=== PATIENT | female | born 1990 | race American Indian/Alaskan Native ===

== ENCOUNTER 2017-12-25 05:34 | Inpatient (IN) | payer BC, MEDICAID ==
[2017-12-25 05:35] VITALS: BMI 31.8
--- NOTE | 2017-12-25 05:39 | ED PDOC ---
Psych Transfer Clearance - Clearance Statement Clearance Statement: Reviewed vital signs, lab results and transfer papers. Patient clinically stable for psychiatric admission.
[2017-12-25 05:59] VITALS: O2SAT 98
[2017-12-25] MEDS ORDERED: DiphenhydrAMINE 50 mg/ml Inj IM PRN (06:14)
--- NOTE | 2017-12-25 06:45 | PCM.BM ---
<Caitlin Dyson - Last Filed: 12/25/17 06:43> Treatment Plan Problems - Problems identified on initial assessmt Medication Nonadherence Date Initiated: 12/25/17 Time Initiated: 06:43 Assessment reference: NA Status: Active Treatment assets and liabiliti Patient Assests: cooperative, ADL independent, physically healthy, good support system, negotiates basic needs Patient Liabilities: other (chronic mental problem) - Milieu Protocol Maintain good personal hygiene: daily Encourage regular showers, daily Remind patient to perform daily oral care, every shift Assist patient to perform ADL's Maintain personal safety: every shift Educate patient to report safety concerns to staff, every shift Monitor environment for contraband/sharps Medication safety: Monitor for expected outcome, potential side effects: every shift, Assess barriers to learning: every shift, Assess readiness for medication education: every shift <Solo Estes - Last Filed: 12/26/17 18:51> Family Contact Family involvement: Family/SO is involved Family contact: Patient declines to allow family contact at present Family contact name: Pt denied. - Goals for Treatment Patient goals for treatment: Pt was discharged focused, but understood that she would benefit from continued hospitaization as she was recently started on medicatons and should be monitored for side effects. Discharge/Continuing Care - Education Needs Education Needs: Patient Medication, Patient Diagnosis/Disease Process, Patient Coping Skills, Patient Anger Management skills, Patient Aftercare Safety Plan - Discharge Discharge Criteria: Tolerates medication w/o severe side effects, Free of Suicidal thoughts, Free of paranoid thoughts, Free of agitation, Normal sleep pattern, Reduction of target symptoms Discharge to:: Home, With Family <Angelika Mendez - Last Filed: 12/28/17 15:49> Discharge/Continuing Care - Treatment Team Participation Patient/Family/SO Statement: 12/28/17 15:49 Patient attended tx team this morning and was better able to engage in discussion regarding progress on 3NP, tx goals and aftercare. Pt. reports significant improvement in sxs of paranoia since admission. Pt. future oriented and motivated for tx. Pt. reported having called [facility] from [facility] to confirm outpatient mental health appointment (12/30 1030am). Pt. visible on 3 and observed socializing appropriately with select peers. Medication management discussed at length. Discussed with Family/SO: No Was Patient/Family/SO present at Treatment Team Meeting: Yes <Ilana Maya - Last Filed: 12/29/17 09:37> - Diagnosis (1) Paranoid delusion Status: Acute Interventions: pharmacotherapy, psychotherapy 12/29/17 09:36
--- NOTE | 2017-12-25 07:29 | CP.PCM.HP ---
History of Present Illness - History of Present Illness History of Present Illness: pt admitted for depression/SI, states has been buliding for a while. has outpt psych appt next week no f/c, n/v/d. no hallucinations h/o asthma-controlled, hernia repair, ovarian cyst removal bw noted Present on Admission - Present on Admission Any Indicators Present on Admission: No Review of Systems - Psychiatric Psychiatric: As Per HPI, Depression, Suicidal Ideation Past Patient History - Infectious Disease Hx of Infectious Diseases: None - Tetanus Immunizations Tetanus Immunization: Up to Date - Past Social History Smoking Status: Never Smoked - CARDIAC Hx Cardiac Disorders: No - PULMONARY Hx Asthma: Yes Hx Bronchitis: Yes - NEUROLOGICAL Hx Neurological Disorder: No - HEENT Hx HEENT Problems: No - RENAL Hx Chronic Kidney Disease: No - ENDOCRINE/METABOLIC Hx Endocrine Disorders: No - HEMATOLOGICAL/ONCOLOGICAL Hx Blood Disorders: No - INTEGUMENTARY Hx Dermatological Problems: No - MUSCULOSKELETAL/RHEUMATOLOGICAL Hx Musculoskeletal Disorders: No Hx Falls: No - GASTROINTESTINAL Hx Gastrointestinal Disorders: No - GENITOURINARY/GYNECOLOGICAL Hx Genitourinary Disorders: No - PSYCHIATRIC Hx Psychophysiologic Disorder: Yes Hx Anxiety: Yes Hx Bipolar Disorder: Yes Hx Depression: Yes Hx Emotional Abuse: No Hx Panic Symptoms: Yes Hx Physical Abuse: No Hx Substance Use: No - SURGICAL HISTORY Other/Comment: OVARIAN CYSTS Meds Allergies/Adverse Reactions: Allergies Allergy/AdvReac Type Severity Reaction Status Date / Time esomeprazole magnesium Allergy RASH Verified 12/25/17 05:45 [From Nexium] Physical Exam - Constitutional Appears: Well, Non-toxic, No Acute Distress - Head Exam Head Exam: ATRAUMATIC, NORMAL INSPECTION, NORMOCEPHALIC - Eye Exam Eye Exam: EOMI, Normal appearance, PERRL Pupil Exam: NORMAL ACCOMODATION, PERRL - ENT Exam ENT Exam: Mucous Membranes Moist, Normal Exam - Neck Exam Neck exam: Positive for: Normal Inspection - Respiratory Exam Respiratory Exam: Clear to Auscultation Bilateral, NORMAL BREATHING PATTERN - Cardiovascular Exam Cardiovascular Exam: REGULAR RHYTHM, RRR, +S1, +S2 - GI/Abdominal Exam GI & Abdominal Exam: Normal Bowel Sounds, Soft. absent: Tenderness - Extremities Exam Extremities exam: Positive for: full ROM, normal capillary refill, normal inspection, pedal pulses present - Back Exam Back exam: FULL ROM, NORMAL INSPECTION - Neurological Exam Neurological exam: Alert, CN II-XII Intact, Normal Gait, Oriented x3, Reflexes Normal - Psychiatric Exam Psychiatric exam: Normal Affect, Normal Mood - Skin Skin Exam: Dry, Intact, Normal Color, Warm Results - Vital Signs Recent Vital Signs: Last Vital Signs Temp 98.1 F 12/25/17 06:25 Pulse 72 12/25/17 06:25 Resp 18 12/25/17 06:25 BP 126/71 12/25/17 06:25 Pulse Ox 98 12/25/17 05:45 - Labs Result Diagrams: 12/25/17 08:14 Assessment & Plan (1) Asthma, mild intermittent, well-controlled Assessment and Plan: albuterol prn Status: Acute (2) DVT prophylaxis Assessment and Plan: ambulation Status: Acute (3) Major depression Assessment and Plan: w/ SI psych meds, interventions, therapies Status: Acute Decision To Admit - Pt Status Changed To: Hospital Disposition Of: Inpatient - Admit Certification Admit to Inpatient:: After my assessment, the patient will require hospitalization for at least two midnights. This is because of the severity of symptoms shown, intensity of services needed, and/or the medical risk in this patient being treated as an outpatient. - . Bed Request Type: Adult Psychiatry Admitting Physician: Caro uMnguia
[2017-12-25 08:58] LABS: T4 8.16 ug/dl (5.5-11.0)
[2017-12-25 09:16] LABS: BLOOD UREA NITROGEN 6 mg/dl (7-17); GFR AFRICAN-AMERICAN > 60; GFR NON-AFRICAN AMERICAN > 60
[2017-12-25 09:17] LABS: CALCIUM 8.5 mg/dL (8.4-10.2)
[2017-12-25] MEDS ORDERED: Albuterol HFA 90 mcg/actuation (8 g) INH PRN (10:13)
--- NOTE | 2017-12-25 14:58 | PCM.PSYCH ---
Initial Psychiatric Evaluation - Initial Psychiatric Evaluation Type of Admission: Voluntary Legal Status: Capacity Chief Complaint (in patient's own words): I started having suicidal thoughts so I came to seek help Patient's Reaction to Hospitalization: pt requested help History of Present Illness and Precipitating Events: pt is 27ys old female, no prior history of psychiatric hospitalization or treatment, pt however reported having paranoid delusions since childhood, , related to tough childhood with alcoholic father and non affectionate mother, pt currently has been feeling increasingly overwhelmed having financial difficulties with four children, for the past month has been experiencing racing thoughts, feeling paranoid towards other people with persecutory delusions of other people talking about her, mood swing with periods of depression alternating with periods of irritability and anger, pt was placed on olanzapine and prozac by PMD with poor response resulting in poor compliance , on day of evaluation pt started experiencing suicidal thoughts , came to ER seeking help pt on the unit continues to have passive suicidal ideation without active plan on the unit, delusions of persecution , presenting with thought blocking, appears internally preoccupied, pt denied command hallucinations, denied any substance use Current Medications: Active Medications Generic Name Dose Route Start Last Admin Trade Name Freq PRN Reason Stop Dose Admin Acetaminophen 650 mg 12/25/17 06:14 Tylenol 325mg Tab PO Q4 PRN pain level 4-7 Albuterol 2 puff 12/25/17 10:13 Ventolin Hfa 90 Mcg/Actuation (8 G) INH RQ4 PRN Shortness of Breath Aripiprazole 10 mg 12/26/17 09:00 Abilify PO DAILY ANETA Diphenhydramine HCl 50 mg 12/25/17 06:14 Benadryl IM Q6 PRN Extrapyramidal S/S Unable PO Diphenhydramine HCl 50 mg 12/25/17 06:14 Benadryl PO Q6 PRN Extrapyramidal Symptoms Haloperidol 5 mg 12/25/17 06:14 Haldol PO Q4 PRN Agitation Haloperidol Lactate 5 mg 12/25/17 06:14 Haldol IM Q4 PRN Agitation, Unable to Take PO Lorazepam 1 mg 12/25/17 06:14 Ativan IM Q8 PRN Anxiety/Agitation,Unable PO Lorazepam 1 mg 12/25/17 06:14 Ativan PO Q8H PRN Anxiety/Agitation Past Psychiatric History - Past Psychiatric History Explanation of prior treatment: no hx of previous psychiatric hospitalization History of ETOH/Drug Use: denied History of Family Illness: father, hx of polysubstance use Pertinent Medical Hx (Current Medical&Sleep Prob, Allergies): Allergies Allergy/AdvReac Type Severity Reaction Status Date / Time esomeprazole magnesium Allergy RASH Verified 12/25/17 05:45 [From Nexium] FLUoxetine [Prozac] 10 mg PO DAILY 11/14/15 Cephalexin [cephalexin] 500 mg PO TID #21 cap 03/29/16 Mental Status Examination - Personal Presentation Personal Presentation: Looks stated age - Affect Affect: Constricted, Depressed - Motor Activity Motor Activity: Psychomotor Retardation - Reliability in Providing Information Reliability in Providing Information: Fair - Speech Speech: Relevant - Mood Mood: Depressed, Anxious - Formal Thought Process Formal Thought Process: Delusions, Paranoia Additional comments: delusions of persecution - Hallucinations/Delusions Additional comments: denied command hallucinations, internally preoccupied - Cognitive Functions Orientation: Person, Place, Situation Attention/Concentration: Attentive - Risk Risk: Suicidal, Diminished functioning - Strength & Assets Inventory Strength & Assets Inventory: Life experience - Limitations Additional comments: partial compliance DSM 5 DX - DSM 5 DSM 5 Diagnosis: bipolar disorder mixed with psychotic features - Recommended/Plan of Treatment Treatment Recommendations and Plan of Treatment: start abilify 5mg, uptitrated to 10mg CBT group and supportive therapy
--- NOTE | 2017-12-26 12:54 | PCM.PYCHPN ---
Psychiatric Progress Note - Psychiatric Progress Note Patient seen today, length of contact: case discussed with team, chart reviewed Patient Chief Complaint: was at home was feeling over whelmed stressed feeling overwhelmed had thoughts of suicide recently had to change psychiatric provider due to change in insurance. reportedly was without medications several days prior to admission. pt reports feeling less sedated with current medications. staff report pt has been adherent with medications. Problems Identified/Issues Discussed: alteration in mood alteration in coping Medical Problems: per chart Diagnostic Results: per psychiatry per medicine per nursing per nursing home social worker per recreational therapy DSM 5 Symptoms Update: alteration in mood suicidal ideations Medication Change: No Medical Record Reviewed: Yes Consults ordered or reviewed: pt evaluated by hospitalist Mental Status Examination - Cognitive Function Orientation: Person, Place, Situation Memory: Intact Attention: WNL Concentration: WNL Association: WNL Fund of Knowledge: WNL Decription of patient's judgement and insights: impaired - Mood Mood: Depressed, Anxious - Affect Affect: Constricted, Depressed - Homicidal Ideation Homicidal Ideation: No
--- NOTE | 2017-12-27 22:07 | PCM.PYCHPN ---
Psychiatric Progress Note - Psychiatric Progress Note Patient seen today, length of contact: case discussed with team, chart reviewed Patient Chief Complaint: pt reports feeling calmer, less anxious less depressed reportedly adherent with current treatment denies side effects,denies desire to harmself or others Problems Identified/Issues Discussed: alteration in mood alteration in coping Medical Problems: per chart Diagnostic Results: per psychiatry per medicine per nursing per social worker delinquency prevention per recreational therapy DSM 5 Symptoms Update: alteration in mood Medication Change: No Medical Record Reviewed: Yes Consults ordered or reviewed: pt seen by hospitalist Mental Status Examination - Cognitive Function Orientation: Person, Place, Situation Memory: Intact Attention: WNL Concentration: WNL Association: [facility] Fund of Knowledge: [facility] Decription of patient's judgement and insights: impaired - Mood Mood: Depressed, Anxious - Affect Affect: Constricted, Depressed - Formal Thought Process Formal Thought Process: Delusions, Paranoia - Suicidal Ideation Suicidal Ideation: No - Homicidal Ideation Homicidal Ideation: No Goal/Treatment Plan - Goal/Treatment Plan Need for Continued Stay: Remain at risks for inpatient hospitalization, Discharge may exacerbated symptoms Progress Toward Problem(s) and Goals/Treatment Plan: inpt milieu vital signs and clinical observation per status and per protocol adjust meds per status discharge planning in progress Estimated Date of D/C: 12/29/17 - Smoking Cessation Smoking Cessation Initiated: No Reason for not providing: defers
--- NOTE | 2017-12-28 16:05 | PCM.PYCHPN ---
Psychiatric Progress Note - Psychiatric Progress Note Patient seen today, length of contact: case discussed with team, chart reviewed Patient Chief Complaint: I feel better with the medicine Problems Identified/Issues Discussed: pt evaluated with treatment team, reported better mood with the increase in abilify. less depressed, no current suicidal thoughts, pt also reported clearing off of the paranoid delusions, observed interacting with staff and other patients, attending groups, no side effects of medications Medical Problems: no hx of previous psychiatric hospitalization DSM 5 Symptoms Update: bipolar disorder Medication Change: No Medical Record Reviewed: Yes Mental Status Examination - Cognitive Function Orientation: Person, Place, Situation Memory: Intact Attention: WNL Concentration: WNL Association: WNL Fund of Knowledge: WNL - Mood Mood: Depressed, Anxious - Affect Affect: Constricted, Depressed - Formal Thought Process Formal Thought Process: Delusions, Paranoia - Suicidal Ideation Suicidal Ideation: No - Homicidal Ideation Homicidal Ideation: No Goal/Treatment Plan - Goal/Treatment Plan Need for Continued Stay: Remain at risks for inpatient hospitalization, Discharge may exacerbated symptoms Progress Toward Problem(s) and Goals/Treatment Plan: abilify 10mg daily CBT group and supportive therapy Estimated Date of D/C: 12/29/17
[2017-12-29 08:47] VITALS: BP 117/72; PULSE 84; RESP 18; TEMP 96.4
--- NOTE | 2017-12-29 14:04 | PCM.PYCHDC ---
Mental Status Examination - Mental Status Examination Orientation: Person, Place, Situation Memory: Intact Mood: Neutral Affect: Broad Speech: Appropriate Attention: WNL Concentration: WNL Fund of Knowledge: WNL Formal Thought Process: Circumstantial Description of patient's judgement and insight: fair insight and judgment Psychotic Thoughts and Behaviors: pt on discharge denied any current psychotic symptoms, non elicited Suicidal Ideation: No Current Homicidal Ideation?: No Discharge Summary - Discharge Note Reason for Hospitalization: pt is 27ys old female, no prior history of psychiatric hospitalization or treatment, pt however reported having paranoid delusions since childhood, , related to tough childhood with alcoholic father and non affectionate mother, pt currently has been feeling increasingly overwhelmed having financial difficulties with four children, for the past month has been experiencing racing thoughts, feeling paranoid towards other people with persecutory delusions of other people talking about her, mood swing with periods of depression alternating with periods of irritability and anger, pt was placed on olanzapine and prozac by PMD with poor response resulting in poor compliance , on day of evaluation pt started experiencing suicidal thoughts , came to ER seeking help pt on the unit continues to have passive suicidal ideation without active plan on the unit, delusions of persecution , presenting with thought blocking, appears internally preoccupied, pt denied command hallucinations, denied any substance use Consultations:: List each consultation separately and include: 1. Reason for request. 2. Findings. 3. Follow-up Summary of Hospital Course include:: 1. Description of specific treatment plan utilized for patients during their course of treatmen. 2. Summarize the time- course for resolution of acute symptoms and/or regressed behaviors. 3. Describe issues identified and worked on during hospitalization. 4. Describe medication utilized. 5. Describe medical problems identified and treated. 6. Reassessment of suicide risk Summary of Hospital Course: pt on admission reported racing thoughts, labile affect, depression , suicidal thoughts, and paranoid delusions, pt was started on abilify 5mg , it was uptitrated to 10mg , CBT group and supportive therapy provided pt was compliant with medications, attended groups, reported clearing off of the paranoid delusions, no reported side effects of medications on discharge mental status was stable pt denied any current suicidal or homicidal ideation , denied perceptual disturbances follow up arranged by health care social worker at [facility] - Diagnosis (1) Paranoid delusion Status: Acute - Final Diagnosis (DSM 5) Condition upon Discharge: STABLE DSM 5: bipolar II disorder depressed delusional disorder Disposition: HOME/ ROUTINE Prescriptions/Medication Reconciliation: ARIPiprazole [Abilify] 10 mg PO DAILY 30 Days #30 tab traZODone [Desyrel] 50 mg PO HS PRN 30 Days #30 tab PRN Reason: Insomnia - Antipsychotic Medications Pt discharged on 2 or more routine antipsychotic medications: No
== END 2017-12-29 11:33 | disposition home or self-care (01) | DRG 430 ==
LOC: H.ER 05:34 → H.PSYCH 05:50
PROVIDERS: ADMIT Psychiatry & Neurology Psychiatry; ATTEND Psychiatry & Neurology Psychiatry
PROC: GZHZZZZ Group Psychotherapy (ICD-10-PCS; principal; 2017-12-25)
PROC: GZ58ZZZ Individual Psychotherapy, Cognitive-Behavioral (ICD-10-PCS; 2017-12-25)
PROC: GZ56ZZZ Individual Psychotherapy, Supportive (ICD-10-PCS; 2017-12-25)
DX: F31.81 Bipolar II disorder (principal); J45.20 Mild intermittent asthma, uncomplicated; R45.851 Suicidal ideations; F22 Delusional disorders